=== PATIENT | female | born 1940 | race Two or more races ===

== ENCOUNTER 2016-05-06 18:55 | Inpatient (IN) | payer OTHER, MEDICAID ==
[~2016-05-06] VITALS: Ht 154.9 cm; Wt 77.2 kg
[2016-05-06 19:27] LABS: Basophils # (auto) 0 uL; Basophils % (auto) 0.2 % (0.0-2.0); DEFINITIVE VIEW TRANSMISSION; Eosinophils # (auto) 0.1 uL; Hematocrit 31.5 % (36.0-46.0); Hemoglobin 9.5 g/dL (12.2-16.2); Lymphocytes # (auto) 2.9 uL; Lymphocytes % (auto) 22.1 % (10.0-50.0); Mean Corpuscular Hgb Conc. 30.2 g/dL (32.0-36.0); Mean Corpuscular Volume 59.8 fL (80.0-100.0); Mean Platelet Volume 9.3 fL (7.4-10.4); Monocytes # (auto) 0.1 uL; Monocytes % (auto) 1.1 % (0.0-12.0); Neutrophils # (auto) 9.8 uL; Neutrophils % (auto) 75.6 % (37.0-80.0); Platelet Count (auto) 299 10^3/uL (140-450); White Blood Cell 12.9 10^3/uL (4.4-10.8)
[2016-05-06 19:37] LABS: Red Cell Distribution Width 20.3 % (11.6-16.0)
[2016-05-06 19:50] LABS: Alkaline Phosphatase 216 U/L (45-117); Anion Gap 16 (5-15); Aspartate Aminotransferase 51 U/L (15-37); BUN/Creatinine Ratio 15.1; Bilirubin, Total 0.6 mg/dL (0.2-1.0); Blood Urea Nitrogen 13 mg/dL (7-18); Calcium 9.3 mg/dL (8.5-10.1); Carbon Dioxide 23 mmol/L (21-32); Chloride 101 mmol/L (98-107); GFR African American 83 mL/min; GFR Non-African American 68 mL/min; Glucose 125 mg/dL (74-106); Sodium 140 mmol/L (136-145); Total Protein 8.1 g/dL (6.4-8.2)
[2016-05-06 20:00] LABS: Platelet Estimate Adequate
[2016-05-06 20:01] LABS: Anisocytosis Moderate; Hypochromia Marked; Microcytosis Marked; Ovalocytes MODERATE
[2016-05-06] MEDS ORDERED: SODIUM CHLORIDE 0.9% 500 ML IVB ONE (20:05)
[2016-05-06] MEDS ORDERED: AZITHROMYCIN 500MG/D5W 250ML 250 ML IV ONE (20:15)
[2016-05-06] MEDS ORDERED: cefTRIAXone 1GM/50ML D5W 50 ML IV ONE (20:15)
[2016-05-06 20:24] LABS: B-Type Natriuretic Peptide 30.47 pg/mL (0-100)
[2016-05-06 20:28] LABS: Prothrombin Time 13.1 sec (9.37-12.3)
[2016-05-06 20:29] LABS: INR 1.27 (0.9-1.15); Partial Thromboplastin Time 34.1 sec (22.64-33.71); Temperature: 22.4 C (20.0-25.0)
[2016-05-06] MEDS: MAGNESIUM SULFATE 1GM/100ML 100 ML IV SCH (20:45)
[2016-05-06 21:20] LABS: Lactic Acid 2.5 mmol/L (0.4-2.0)
[2016-05-06 21:23] LABS: REFLEX LACTIC ACID YES OR NO YES
[2016-05-06 21:43] LABS: Urine RBC None Seen /hpf (0 - 4)
[2016-05-06 21:59] LABS: Urine Bilirubin Negative (Negative); Urine Blood Negative /uL (Negative); Urine Color Yellow (Yellow); Urine Glucose Normal (Normal); Urine Ketone Negative (Negative); Urine Nitrite Negative (Negative); Urine Squamous Epithelial Cell FEW /hpf (<5); Urine Urobilinogen Normal (Negative); Urine pH 5.5 (5.0-8.0)
[2016-05-06 22:16] LABS: Lactic Acid 2.2 mmol/L (0.4-2.0)
[2016-05-06 22:20] LABS: REFLEX LACTIC ACID YES OR NO NO
[2016-05-06] MEDS ORDERED: cefTRIAXone SOD 1,000 MG VL ONE (23:06)
[2016-05-06] MEDS ORDERED: LACTULOSE 20Gm/30ML SOLN PO PRN ×2 (23:15→23:30)
[2016-05-06] MEDS ORDERED: NITROGLYCERIN 0.4 MG SL TAB SL PRN (23:15)
[2016-05-06] MEDS ORDERED: MORPHINE SULF INJ 2 MG/ML SYRINGE 1ML IV PRN (23:15)
[2016-05-06] MEDS ORDERED: MORPHINE SULFATE 4 MG/ML SYRG IV PRN (23:30)
[2016-05-06] MEDS ORDERED: ONDANSETRON HCL 4 MG/2 ML VIAL IV PRN (23:30)
[2016-05-06] MEDS ORDERED: DEXTROSE (50%) 50ML SYRG IV PRN (23:45)
[2016-05-07 01:00] VITALS: BP 141/79
[2016-05-07] MEDS ORDERED: MAGNESIUM SULFATE 1GM/100ML 100 ML IV ONE (02:16)
[2016-05-07] MEDS: MAGNESIUM SULFATE 1GM/100ML 100 ML IV SCH (02:22)
[2016-05-07] MEDS: IPRATROPIUM BROM 0.5 MG/2.5ML INH SOL NEB SCH ×6 (02:29→22:23)
[2016-05-07] MEDS: ALBUTEROL SULF 2.5 MG/0.5ML(0.5%) NEB SOLN NEB SCH ×6 (02:29→22:24)
[2016-05-07 04:37] VITALS: BP 133/54
[2016-05-07] MEDS: ACCU-CHEK COMFORT CURVE STRIP VI SCH ×4 (06:14→17:33)
[2016-05-07 06:15] LABS: Basophils # (auto) 0 uL; Basophils % (auto) 0.5 % (0.0-2.0); DEFINITIVE VIEW TRANSMISSION; Eosinophils # (auto) 0.1 uL; Eosinophils % (auto) 0.6 % (0.0-7.0); Hematocrit 29.5 % (36.0-46.0); Hemoglobin 8.9 g/dL (12.2-16.2); Lymphocytes # (auto) 1.8 uL; Lymphocytes % (auto) 17.9 % (10.0-50.0); Mean Corpuscular Hemoglobin 18.1 pg (28.0-32.0); Mean Corpuscular Hgb Conc. 30.1 g/dL (32.0-36.0); Mean Corpuscular Volume 60.3 fL (80.0-100.0); Mean Platelet Volume 9.4 fL (7.4-10.4); Monocytes # (auto) 0.7 uL; Monocytes % (auto) 7.5 % (0.0-12.0); Neutrophils # (auto) 7.2 uL; Neutrophils % (auto) 73.5 % (37.0-80.0); Platelet Count (auto) 273 10^3/uL (140-450); Red Cell Distribution Width 19.7 % (11.6-16.0); SUSPECT VIEW TRANSMISSION; White Blood Cell 9.9 10^3/uL (4.4-10.8)
[2016-05-07] MEDS: InsuLIN REG 1unit/0.01ml Soln (100units/ml) SC SCH ×4 (06:15→17:59)
[2016-05-07] MEDS: metroNIDAZOLE 500 MG TAB PO SCH ×3 (06:16→22:01)
[2016-05-07 06:39] LABS: Albumin 2.9 g/dL (3.4-5.0); Bilirubin, Total 0.6 mg/dL (0.2-1.0); Calcium 9.1 mg/dL (8.5-10.1); Total Protein 7.6 g/dL (6.4-8.2)
[2016-05-07 08:00] VITALS: BP 145/64
[2016-05-07] MEDS: LEVOTHYROXINE SODIUM 25 MCG TAB PO SCH (09:14)
[2016-05-07] MEDS: BENAZEPRIL HCL 10 MG TAB PO SCH (09:14)
[2016-05-07] MEDS: LEVOTHYROXINE SODIUM 112 MCG TAB PO SCH (09:16)
[2016-05-07] MEDS: methylPREDNISolone SOD SUCC 40 MG/ML VL IV SCH ×2 (09:17→22:01)
[2016-05-07] MEDS: PANTOPRAZOLE SODIUM 40 MG/10 ML VIAL IV SCH (09:17)
[2016-05-07] MEDS ORDERED: RIVAROXABAN 10 MG TAB PO SCH (10:00)
[2016-05-07] MEDS ORDERED: PATIENTS OWN MEDICATION (xarelto 20 MG) PO SCH (10:00)
[2016-05-07 11:52] VITALS: BP 143/71
[2016-05-07 16:00] VITALS: BP 145/99
[2016-05-07] MEDS ORDERED: LEVO150T68 PO (17:57)
[2016-05-07] MEDS ORDERED: GLIP-115 PO (17:57)
[2016-05-07] MEDS: RIVAROXABAN 20 MG TAB PO SCH (17:57)
[2016-05-07 20:00] VITALS: BP 134/57
[2016-05-07] MEDS: cefTRIAXone 1GM/50ML D5W 50 ML IV SCH (22:00)
[2016-05-07] MEDS: AZITHROMYCIN 500MG/D5W 250ML 250 ML IV SCH (22:00)
[2016-05-07] MEDS: ATORVASTATIN 20 MG TAB PO SCH (22:01)
[2016-05-08] VITALS (7 sets, daily range): BP systolic 118–150; BP diastolic 57–76
[2016-05-08] MEDS: ACCU-CHEK COMFORT CURVE STRIP VI SCH ×5 (00:15→23:04)
[2016-05-08] MEDS: InsuLIN REG 1unit/0.01ml Soln (100units/ml) SC SCH ×5 (00:19→23:04)
[2016-05-08] MEDS: IPRATROPIUM BROM 0.5 MG/2.5ML INH SOL NEB SCH ×6 (02:00→21:57)
[2016-05-08] MEDS: metroNIDAZOLE 500 MG TAB PO SCH ×3 (05:38→21:11)
[2016-05-08 06:08] LABS: DEFINITIVE VIEW TRANSMISSION; Hematocrit 32.6 % (36.0-46.0); Hemoglobin 9.9 g/dL (12.2-16.2); Mean Corpuscular Hemoglobin 18.4 pg (28.0-32.0); Mean Corpuscular Hgb Conc. 30.4 g/dL (32.0-36.0); Mean Corpuscular Volume 60.6 fL (80.0-100.0); Mean Platelet Volume 9.6 fL (7.4-10.4); Platelet Count (auto) 294 10^3/uL (140-450); White Blood Cell 13.2 10^3/uL (4.4-10.8)
[2016-05-08] MEDS: ALBUTEROL SULF 2.5 MG/0.5ML(0.5%) NEB SOLN NEB SCH ×5 (06:13→21:57)
[2016-05-08 06:18] LABS: Calcium 9.1 mg/dL (8.5-10.1); Potassium 4.6 mmol/L (3.5-5.1)
[2016-05-08 06:21] LABS: Red Cell Distribution Width 20.3 % (11.6-16.0)
[2016-05-08 06:22] LABS: BUN/Creatinine Ratio 13.4; Magnesium 2.3 mg/dL (1.6-2.6); Metamyelocytes % 0; Myelocytes % 0; Promyelocytes % 0; Reactive Lymphocytes 0
[2016-05-08 06:26] LABS: INR 1.36 (0.9-1.15)
[2016-05-08 06:50] LABS: Anisocytosis Slight; Hypersegmented Neutrophils Present; Platelet Estimate Adequate
[2016-05-08 06:51] LABS: Hypochromia Moderate; Ovalocytes MODERATE
[2016-05-08] MEDS: BENAZEPRIL HCL 10 MG TAB PO SCH (10:00)
[2016-05-08] MEDS: LEVOTHYROXINE SODIUM 112 MCG TAB PO SCH (10:28)
[2016-05-08] MEDS: LEVOTHYROXINE SODIUM 25 MCG TAB PO SCH (10:28)
[2016-05-08] MEDS: PANTOPRAZOLE SODIUM 40 MG/10 ML VIAL IV SCH (10:28)
[2016-05-08] MEDS: methylPREDNISolone SOD SUCC 40 MG/ML VL IV SCH ×2 (10:28→21:10)
[2016-05-08] MEDS ORDERED: INSULIN DETEMIR(LEVEMIR) 1unit/0.01ml Soln (100units/ml) SC ONE (12:45)
[2016-05-08] MEDS: RIVAROXABAN 20 MG TAB PO SCH (18:31)
[2016-05-08] MEDS: cefTRIAXone 1GM/50ML D5W 50 ML IV SCH (21:10)
[2016-05-08] MEDS: ATORVASTATIN 20 MG TAB PO SCH (21:11)
[2016-05-08] MEDS: AZITHROMYCIN 500MG/D5W 250ML 250 ML IV SCH (22:16)
[2016-05-09] MEDS: ALBUTEROL SULF 2.5 MG/0.5ML(0.5%) NEB SOLN NEB SCH ×6 (01:55→22:40)
[2016-05-09] MEDS: IPRATROPIUM BROM 0.5 MG/2.5ML INH SOL NEB SCH ×6 (01:55→22:40)
[2016-05-09 05:00] VITALS: BP 132/74
[2016-05-09] MEDS: metroNIDAZOLE 500 MG TAB PO SCH ×2 (05:41→12:26)
[2016-05-09] MEDS: InsuLIN REG 1unit/0.01ml Soln (100units/ml) SC SCH ×3 (05:53→17:36)
[2016-05-09] MEDS: ACCU-CHEK COMFORT CURVE STRIP VI SCH ×3 (05:53→17:35)
[2016-05-09 06:07] LABS: DEFINITIVE VIEW TRANSMISSION; Hematocrit 29.9 % (36.0-46.0); Mean Corpuscular Hemoglobin 18.2 pg (28.0-32.0); Mean Corpuscular Hgb Conc. 30.2 g/dL (32.0-36.0); Mean Corpuscular Volume 60.3 fL (80.0-100.0); Mean Platelet Volume 9.9 fL (7.4-10.4); Platelet Count (auto) 266 10^3/uL (140-450); White Blood Cell 17.2 10^3/uL (4.4-10.8)
[2016-05-09 06:16] LABS: Red Cell Distribution Width 20.4 % (11.6-16.0)
[2016-05-09 06:17] LABS: Metamyelocytes % 0; Myelocytes % 0; Promyelocytes % 0; Reactive Lymphocytes 0
[2016-05-09] MEDS: LEVOTHYROXINE SODIUM 25 MCG TAB PO SCH (06:28)
[2016-05-09] MEDS: LEVOTHYROXINE SODIUM 112 MCG TAB PO SCH (06:28)
[2016-05-09 06:40] LABS: BUN/Creatinine Ratio 23.4; Magnesium 2.3 mg/dL (1.6-2.6); Phosphorus 3.5 mg/dL (2.5-4.90); Potassium 4.8 mmol/L (3.5-5.1)
[2016-05-09 06:57] LABS: Hypersegmented Neutrophils Present; Platelet Estimate Adequate
[2016-05-09 06:58] LABS: Anisocytosis Slight; Hypochromia Marked; Ovalocytes MODERATE
[2016-05-09 08:58] VITALS: BP 137/75
[2016-05-09] MEDS: PANTOPRAZOLE SODIUM 40 MG/10 ML VIAL IV SCH (10:17)
[2016-05-09] MEDS: methylPREDNISolone SOD SUCC 40 MG/ML VL IV SCH (10:17)
[2016-05-09] MEDS: BENAZEPRIL HCL 10 MG TAB PO SCH (10:17)
[2016-05-09 12:51] VITALS: BP 134/84
[2016-05-09 16:43] VITALS: BP 133/64
[2016-05-09] MEDS ORDERED: DEXTROSE (50%) 50ML SYRG IV PRN (16:45)
[2016-05-09] MEDS ORDERED: VANCOMYCIN PER PHARMACY 0 MG IV SCH (17:15)
[2016-05-09] MEDS: RIVAROXABAN 20 MG TAB PO SCH (17:36)
[2016-05-09] MEDS: VANCOMYCIN 1GM/250ML D5W 250 ML IV SCH (18:09)
[2016-05-09 20:00] VITALS: BP 121/62
[2016-05-09] MEDS: MEROPENEM 1GM IVPB 100 ML IV SCH (20:05)
[2016-05-09 21:34] VITALS: BP 121/62
[2016-05-09] MEDS: ATORVASTATIN 20 MG TAB PO SCH (21:43)
[2016-05-09] MEDS ORDERED: INSULIN DETEMIR(LEVEMIR) 1unit/0.01ml Soln (100units/ml) SC SCH (22:00)
[2016-05-10] MEDS: InsuLIN REG 1unit/0.01ml Soln (100units/ml) SC SCH ×3 (00:19→12:03)
[2016-05-10] MEDS: ACCU-CHEK COMFORT CURVE STRIP VI SCH ×3 (00:20→12:03)
[2016-05-10] MEDS: ALBUTEROL SULF 2.5 MG/0.5ML(0.5%) NEB SOLN NEB SCH ×4 (02:00→14:07)
[2016-05-10] MEDS: IPRATROPIUM BROM 0.5 MG/2.5ML INH SOL NEB SCH ×4 (02:00→14:07)
[2016-05-10] MEDS: MEROPENEM 1GM IVPB 100 ML IV SCH ×2 (03:08→10:48)
[2016-05-10 05:27] LABS: DEFINITIVE VIEW TRANSMISSION; Hematocrit 32.1 % (36.0-46.0); Hemoglobin 9.5 g/dL (12.2-16.2); Mean Corpuscular Hemoglobin 18.3 pg (28.0-32.0); Mean Corpuscular Hgb Conc. 29.7 g/dL (32.0-36.0); Mean Corpuscular Volume 61.3 fL (80.0-100.0); Mean Platelet Volume 9.6 fL (7.4-10.4); Platelet Count (auto) 275 10^3/uL (140-450); White Blood Cell 19.1 10^3/uL (4.4-10.8)
[2016-05-10 05:36] VITALS: BP 142/76
[2016-05-10 05:45] LABS: Metamyelocytes % 0; Myelocytes % 0; Promyelocytes % 0; Reactive Lymphocytes 0
[2016-05-10 05:48] LABS: Potassium 4.2 mmol/L (3.5-5.1)
[2016-05-10 05:54] LABS: BUN/Creatinine Ratio 25.7; Calcium 8.4 mg/dL (8.5-10.1)
[2016-05-10] MEDS: VANCOMYCIN 1GM/250ML D5W 250 ML IV SCH (06:08)
[2016-05-10 06:15] LABS: Anisocytosis Moderate; Hypochromia Marked; Microcytosis Marked; Ovalocytes MODERATE; Platelet Estimate Adequate
[2016-05-10 06:16] LABS: Hypersegmented Neutrophils Present
[2016-05-10] MEDS: LEVOTHYROXINE SODIUM 25 MCG TAB PO SCH (06:31)
[2016-05-10] MEDS: LEVOTHYROXINE SODIUM 112 MCG TAB PO SCH (06:31)
[2016-05-10 09:00] VITALS: BP 118/99
[2016-05-10 09:22] VITALS: BP 142/76
[2016-05-10] MEDS: PANTOPRAZOLE SODIUM 40 MG/10 ML VIAL IV SCH (10:43)
[2016-05-10] MEDS: BENAZEPRIL HCL 10 MG TAB PO SCH (10:49)
[2016-05-10 12:38] VITALS: BP 121/84
[2016-05-10] MEDS ORDERED: BEN10T PO (13:48)
[2016-05-10] MEDS ORDERED: ALB5IS NEB (13:48)
[2016-05-10] MEDS ORDERED: ATOR20TA50 PO (13:48)
[2016-05-10] MEDS ORDERED: IPR002IS NEB (13:48)
[2016-05-10] MEDS ORDERED: RIV20T PO (13:48)
[2016-05-10] MEDS ORDERED: LEVEMIR SC (13:48)
[2016-05-10 14:26] VITALS: BP 121/84
== END 2016-05-10 15:50 | disposition home or self-care (01) | DRG 871 ==
LOC: ER 18:59 → DOU IN ICU 19:00 → TELE-WESTW 05-08 05:55
PROVIDERS: ADMIT Family Medicine; ATTEND Nurse Practitioner Acute Care
DX: A41.9 Sepsis, unspecified organism (principal); J18.9 Pneumonia, unspecified organism; J96.01 Acute respiratory failure with hypoxia; J44.0 Chronic obstructive pulmonary disease with (acute) lower respiratory infection; J44.1 Chronic obstructive pulmonary disease with (acute) exacerbation; C78.00 Secondary malignant neoplasm of unspecified lung; C78.7 Secondary malignant neoplasm of liver and intrahepatic bile duct; E83.42 Hypomagnesemia; I10 Essential (primary) hypertension; F32.9 Major depressive disorder, single episode, unspecified; F41.9 Anxiety disorder, unspecified; Y95 Nosocomial condition; D50.9 Iron deficiency anemia, unspecified; Z92.21 Personal history of antineoplastic chemotherapy; Z85.3 Personal history of malignant neoplasm of breast; Z90.13 Acquired absence of bilateral breasts and nipples; Z86.718 Personal history of other venous thrombosis and embolism; Z82.49 Family history of ischemic heart disease and other diseases of the circulatory system; Z83.3 Family history of diabetes mellitus
CPT/HCPCS: 36415; 36600; 71010; 71020; 71250; 80048; 80053; 80061; 81001; 82805; 82962; 83036; 83605; 83735; 83880; 84100; 84443; 84484; 85007; 85025; 85027; 85610; 85730; 87040; 87081; 93005; 94640; 96361; 96365; 96368; C9113; J0696; J1815; J2185

== ENCOUNTER 2016-06-26 18:36 | Inpatient (IN) | payer OTHER, MEDICAID ==
[~2016-06-26] VITALS: Ht 152.4 cm; Wt 82.0 kg
[~2016-06-26 18:36] MED LIST: ALB5IS NEB; ATOR20TA50 PO; BEN10T PO; GLIP-115 PO; IPR002IS NEB; LEVEMIR SC; LEVO150T68 PO; RIV20T PO
[2016-06-26] MEDS ORDERED: methylPREDNISolone SOD SUCC 125 MG/2 ML VL IV ONE (22:30)
[2016-06-26] MEDS ORDERED: ONDANSETRON HCL 4 MG/2 ML VIAL IV ONE (22:30)
[2016-06-26] MEDS ORDERED: SODIUM CHLORIDE 0.9% 1,000 ML IV ONE (22:30)
[2016-06-26 23:06] LABS: Basophils # (auto) 0 uL; Basophils % (auto) 0.1 % (0.0-2.0); DEFINITIVE VIEW TRANSMISSION; Eosinophils # (auto) 0.2 uL; Eosinophils % (auto) 1.1 % (0.0-7.0); Hematocrit 30.9 % (36.0-46.0); Hemoglobin 9.2 g/dL (12.2-16.2); Lymphocytes # (auto) 1.5 uL; Lymphocytes % (auto) 8.9 % (10.0-50.0); Mean Corpuscular Hgb Conc. 29.7 g/dL (32.0-36.0); Mean Corpuscular Volume 60.5 fL (80.0-100.0); Mean Platelet Volume 8.8 fL (7.4-10.4); Monocytes # (auto) 0.6 uL; Monocytes % (auto) 3.4 % (0.0-12.0); Neutrophils # (auto) 14.2 uL; Neutrophils % (auto) 86.5 % (37.0-80.0); Platelet Count (auto) 345 10^3/uL (140-450); White Blood Cell 16.4 10^3/uL (4.4-10.8)
[2016-06-26 23:17] LABS: INR 0.99 (0.9-1.15); Partial Thromboplastin Time 26.9 sec (22.64-33.71); Prothrombin Time 10.7 sec (9.37-12.3)
[2016-06-26 23:21] LABS: Albumin 2.3 g/dL (3.4-5.0); Alkaline Phosphatase 514 U/L (45-117); Anion Gap 9 (5-15); Aspartate Aminotransferase 57 U/L (15-37); BUN/Creatinine Ratio 21.3; Bilirubin, Total 0.4 mg/dL (0.2-1.0); Blood Urea Nitrogen 13 mg/dL (7-18); Calcium 9.3 mg/dL (8.5-10.1); Carbon Dioxide 36 mmol/L (21-32); Chloride 98 mmol/L (98-107); GFR African American 123 mL/min; GFR Non-African American 102 mL/min; Glucose 133 mg/dL (74-106); Potassium 4.7 mmol/L (3.5-5.1); Sodium 143 mmol/L (136-145); Total Protein 7.3 g/dL (6.4-8.2)
[2016-06-27] VITALS (16 sets, daily range): BP systolic 119–162; BP diastolic 48–93
[2016-06-27 00:03] LABS: B-Type Natriuretic Peptide 126.75 pg/mL (0-100); Temperature: 23.8 C (20.0-25.0)
[2016-06-27] MEDS ORDERED: FUROSEMIDE 20 MG/2 ML VIAL IV ONE (01:15)
[2016-06-27] MEDS ORDERED: PIPERACILLIN-TAZOB 3.375GM 100 ML IV ONE (01:15)
[2016-06-27] MEDS ORDERED: AZITHROMYCIN 500MG/D5W 250ML 250 ML IV ONE (01:15)
[2016-06-27] MEDS ORDERED: ONDANSETRON HCL 4 MG/2 ML VIAL IV PRN (01:45)
[2016-06-27] MEDS ORDERED: DEXTROSE (50%) 50ML SYRG IV PRN (01:45)
[2016-06-27] MEDS ORDERED: MORPHINE SULF INJ 2 MG/ML SYRINGE 1ML IV PRN (01:45)
[2016-06-27] MEDS ORDERED: HYDROcodone-ACET 5/325MG TAB PO PRN (01:45)
[2016-06-27] MEDS ORDERED: TEMAZEPAM 15 MG CAP PO PRN (01:45)
[2016-06-27] MEDS ORDERED: NITROGLYCERIN 0.4 MG SL TAB SL PRN (01:45)
[2016-06-27] MEDS ORDERED: IOHEXOL 350 MG/ML 100ML IJ ONE (02:01)
[2016-06-27] MEDS: ENOXAPARIN SOD 80 MG/0.8ML SYRINGE SC SCH ×2 (03:10→15:01)
[2016-06-27] MEDS: ACCU-CHEK COMFORT CURVE STRIP VI SCH ×4 (06:00→23:36)
[2016-06-27] MEDS: InsuLIN REG 1unit/0.01ml Soln (100units/ml) SC SCH ×4 (06:00→23:36)
[2016-06-27] MEDS: glipiZIDE 5 MG TAB PO SCH ×3 (07:11→18:00)
[2016-06-27] MEDS: LEVOTHYROXINE SODIUM 50 MCG TAB PO SCH (07:11)
[2016-06-27] MEDS ORDERED: LETR2.5T PO (09:43)
[2016-06-27] MEDS ORDERED: SENN8.6C PO (09:43)
[2016-06-27] MEDS ORDERED: SPIR25TA89 PO (09:43)
[2016-06-27] MEDS ORDERED: HYDR-531 PO (09:43)
[2016-06-27] MEDS ORDERED: METF-316 PO (09:43)
[2016-06-27] MEDS ORDERED: OME20T PO (09:43)
[2016-06-27] MEDS: methylPREDNISolone SOD SUCC 125 MG/2 ML VL IV SCH ×2 (10:45→21:33)
[2016-06-27] MEDS: LEVOFLOXACIN 500MG 100 ML IV SCH (10:45)
[2016-06-27] MEDS: PANTOPRAZOLE SODIUM 40 MG/10 ML VIAL IV SCH (10:45)
[2016-06-27] MEDS: IPRATROPIUM BROM 0.5 MG/2.5ML INH SOL NEB PRN (11:05)
[2016-06-27] MEDS: ALBUTEROL SULF 2.5 MG/0.5ML(0.5%) NEB SOLN NEB PRN (11:05)
[2016-06-27] MEDS: ATORVASTATIN 20 MG TAB PO SCH (21:33)
[2016-06-28] VITALS (13 sets, daily range): BP systolic 112–148; BP diastolic 40–79
[2016-06-28] MEDS: ENOXAPARIN SOD 80 MG/0.8ML SYRINGE SC SCH ×2 (02:46→15:00)
[2016-06-28 03:46] LABS: DEFINITIVE VIEW TRANSMISSION; Hematocrit 31.5 % (36.0-46.0); Hemoglobin 9.2 g/dL (12.2-16.2); Mean Corpuscular Hemoglobin 17.9 pg (28.0-32.0); Mean Corpuscular Hgb Conc. 29.2 g/dL (32.0-36.0); Mean Corpuscular Volume 61.3 fL (80.0-100.0); Mean Platelet Volume 8.9 fL (7.4-10.4); Platelet Count (auto) 342 10^3/uL (140-450); White Blood Cell 16.7 10^3/uL (4.4-10.8)
[2016-06-28] MEDS: IPRATROPIUM BROM 0.5 MG/2.5ML INH SOL NEB PRN ×2 (03:47→19:39)
[2016-06-28] MEDS: ALBUTEROL SULF 2.5 MG/0.5ML(0.5%) NEB SOLN NEB PRN ×2 (03:47→19:39)
[2016-06-28 04:03] LABS: Albumin 2.3 g/dL (3.4-5.0); BUN/Creatinine Ratio 23.1; Bilirubin, Total 0.3 mg/dL (0.2-1.0); Calcium 8.9 mg/dL (8.5-10.1); Potassium 4.7 mmol/L (3.5-5.1); Total Protein 7.3 g/dL (6.4-8.2)
[2016-06-28 04:10] LABS: Metamyelocytes % 0; Promyelocytes % 0; Reactive Lymphocytes 0
[2016-06-28 04:29] LABS: Myelocytes % 1; Platelet Estimate Adequate
[2016-06-28 04:30] LABS: Hypochromia Marked
[2016-06-28 04:31] LABS: Anisocytosis Moderate; Basophilic Stippling FEW; Microcytosis Marked
[2016-06-28] MEDS: InsuLIN REG 1unit/0.01ml Soln (100units/ml) SC SCH ×3 (06:05→18:00)
[2016-06-28] MEDS: ACCU-CHEK COMFORT CURVE STRIP VI SCH ×3 (06:05→18:18)
[2016-06-28] MEDS: glipiZIDE 5 MG TAB PO SCH ×2 (06:38→18:00)
[2016-06-28] MEDS: LEVOTHYROXINE SODIUM 50 MCG TAB PO SCH (06:38)
[2016-06-28] MEDS: MORPHINE SULF INJ 2 MG/ML SYRINGE 1ML IV PRN (12:32)
[2016-06-28] MEDS: methylPREDNISolone SOD SUCC 125 MG/2 ML VL IV SCH ×2 (12:33→22:28)
[2016-06-28] MEDS: LEVOFLOXACIN 500MG 100 ML IV SCH (12:33)
[2016-06-28] MEDS: PANTOPRAZOLE SODIUM 40 MG/10 ML VIAL IV SCH (12:33)
[2016-06-28] MEDS ORDERED: ONDANSETRON ODT 4 MG TAB PO ONE (18:45)
[2016-06-28] MEDS: ATORVASTATIN 20 MG TAB PO SCH (22:28)
[2016-06-29] MEDS: InsuLIN REG 1unit/0.01ml Soln (100units/ml) SC SCH ×4 (00:07→16:31)
[2016-06-29] MEDS: ACCU-CHEK COMFORT CURVE STRIP VI SCH ×4 (00:07→16:31)
[2016-06-29] MEDS: IPRATROPIUM BROM 0.5 MG/2.5ML INH SOL NEB PRN ×3 (00:58→23:02)
[2016-06-29] MEDS: ALBUTEROL SULF 2.5 MG/0.5ML(0.5%) NEB SOLN NEB PRN ×3 (00:58→23:02)
[2016-06-29] MEDS: ENOXAPARIN SOD 80 MG/0.8ML SYRINGE SC SCH ×2 (02:44→16:21)
[2016-06-29 05:00] VITALS: BP 147/79
[2016-06-29 06:05] LABS: DEFINITIVE VIEW TRANSMISSION; Hematocrit 33.3 % (36.0-46.0); Hemoglobin 9.8 g/dL (12.2-16.2); Mean Corpuscular Hgb Conc. 29.6 g/dL (32.0-36.0); Mean Corpuscular Volume 60.8 fL (80.0-100.0); Mean Platelet Volume 9.6 fL (7.4-10.4); Platelet Count (auto) 313 10^3/uL (140-450); Red Cell Distribution Width 19.3 % (11.6-16.0); White Blood Cell 16.5 10^3/uL (4.4-10.8)
[2016-06-29 06:16] LABS: BUN/Creatinine Ratio 26.4; Calcium 8.9 mg/dL (8.5-10.1); Potassium 4.3 mmol/L (3.5-5.1)
[2016-06-29] MEDS: LEVOTHYROXINE SODIUM 50 MCG TAB PO SCH (06:16)
[2016-06-29] MEDS: glipiZIDE 5 MG TAB PO SCH ×2 (06:17→17:05)
[2016-06-29 06:29] LABS: Metamyelocytes % 0; Myelocytes % 0; Promyelocytes % 0; Reactive Lymphocytes 0
[2016-06-29 07:18] LABS: Anisocytosis Moderate; Platelet Estimate Adequate
[2016-06-29 07:19] LABS: Hypochromia Marked; Microcytosis Moderate
[2016-06-29 09:00] VITALS: BP 134/68
[2016-06-29] MEDS: PANTOPRAZOLE SODIUM 40 MG/10 ML VIAL IV SCH (10:29)
[2016-06-29] MEDS: methylPREDNISolone SOD SUCC 125 MG/2 ML VL IV SCH ×2 (10:30→21:40)
[2016-06-29] MEDS: LEVOFLOXACIN 500MG 100 ML IV SCH (10:30)
[2016-06-29 13:00] VITALS: BP 137/71
[2016-06-29] MEDS: MORPHINE SULF INJ 2 MG/ML SYRINGE 1ML IV PRN ×2 (13:53→17:58)
[2016-06-29] MEDS ORDERED: LACTULOSE 20Gm/30ML SOLN PO PRN (15:30)
[2016-06-29] MEDS ORDERED: DOCUSATE SOD 100 MG CAP PO PRN (15:30)
[2016-06-29 17:00] VITALS: BP 161/75
[2016-06-29 21:23] VITALS: BP 161/75
[2016-06-29] MEDS: ATORVASTATIN 20 MG TAB PO SCH (21:40)
[2016-06-29 22:13] VITALS: BP 147/67
[2016-06-30] MEDS: ACCU-CHEK COMFORT CURVE STRIP VI SCH ×5 (00:09→23:20)
[2016-06-30] MEDS: ENOXAPARIN SOD 80 MG/0.8ML SYRINGE SC SCH ×2 (02:58→14:44)
[2016-06-30] MEDS: IPRATROPIUM BROM 0.5 MG/2.5ML INH SOL NEB PRN ×2 (03:11→19:12)
[2016-06-30] MEDS: ALBUTEROL SULF 2.5 MG/0.5ML(0.5%) NEB SOLN NEB PRN ×2 (03:11→19:13)
[2016-06-30 05:09] VITALS: BP 136/71
[2016-06-30] MEDS: InsuLIN REG 1unit/0.01ml Soln (100units/ml) SC SCH ×5 (06:01→23:20)
[2016-06-30] MEDS: LEVOTHYROXINE SODIUM 50 MCG TAB PO SCH (06:15)
[2016-06-30] MEDS: glipiZIDE 5 MG TAB PO SCH ×2 (06:15→18:02)
[2016-06-30] MEDS: MORPHINE SULF INJ 2 MG/ML SYRINGE 1ML IV PRN (08:40)
[2016-06-30 09:00] VITALS: BP 134/88
[2016-06-30] MEDS: PANTOPRAZOLE SODIUM 40 MG/10 ML VIAL IV SCH (09:01)
[2016-06-30] MEDS: methylPREDNISolone SOD SUCC 125 MG/2 ML VL IV SCH ×2 (09:01→21:27)
[2016-06-30] MEDS: LEVOFLOXACIN 500MG 100 ML IV SCH (09:01)
[2016-06-30 13:00] VITALS: BP 143/75
[2016-06-30] MEDS: ACETAMINOPHEN 325 MG TAB PO PRN (14:47)
[2016-06-30] MEDS: Boost Glucose Control 8 Ounces PO SCH (18:02)
[2016-06-30 18:06] VITALS: BP 138/62
[2016-06-30] MEDS: ATORVASTATIN 20 MG TAB PO SCH (21:27)
[2016-06-30 21:40] VITALS: BP 140/79
[2016-06-30 23:58] VITALS: BP 149/76
[2016-07-01] MEDS: ACETAMINOPHEN 325 MG TAB PO PRN ×2 (00:08→23:49)
[2016-07-01] MEDS: ENOXAPARIN SOD 80 MG/0.8ML SYRINGE SC SCH ×2 (03:14→14:51)
[2016-07-01] MEDS: IPRATROPIUM BROM 0.5 MG/2.5ML INH SOL NEB PRN ×4 (03:25→19:49)
[2016-07-01] MEDS: ALBUTEROL SULF 2.5 MG/0.5ML(0.5%) NEB SOLN NEB PRN ×4 (03:25→19:49)
[2016-07-01 04:43] VITALS: BP 123/59
[2016-07-01] MEDS: InsuLIN REG 1unit/0.01ml Soln (100units/ml) SC SCH ×4 (05:53→23:49)
[2016-07-01] MEDS: ACCU-CHEK COMFORT CURVE STRIP VI SCH ×3 (05:53→17:52)
[2016-07-01] MEDS: LEVOTHYROXINE SODIUM 50 MCG TAB PO SCH (06:18)
[2016-07-01] MEDS: glipiZIDE 5 MG TAB PO SCH ×2 (06:18→17:52)
[2016-07-01] MEDS: Boost Glucose Control 8 Ounces PO SCH ×2 (08:00→17:50)
[2016-07-01 09:04] VITALS: BP 140/71
[2016-07-01] MEDS: PANTOPRAZOLE SODIUM 40 MG/10 ML VIAL IV SCH (10:33)
[2016-07-01] MEDS: LEVOFLOXACIN 500MG 100 ML IV SCH (10:34)
[2016-07-01] MEDS: methylPREDNISolone SOD SUCC 125 MG/2 ML VL IV SCH ×2 (10:34→21:38)
[2016-07-01 13:00] VITALS: BP 140/80
[2016-07-01 17:11] VITALS: BP 135/85
[2016-07-01 20:27] VITALS: BP 135/85
[2016-07-01] MEDS: ATORVASTATIN 20 MG TAB PO SCH (21:39)
[2016-07-01 22:00] VITALS: BP 142/81
[2016-07-02] MEDS: ACCU-CHEK COMFORT CURVE STRIP VI SCH ×5 (00:13→23:34)
[2016-07-02] MEDS: ENOXAPARIN SOD 80 MG/0.8ML SYRINGE SC SCH ×2 (02:37→15:17)
[2016-07-02 05:42] VITALS: BP 147/84
[2016-07-02] MEDS: InsuLIN REG 1unit/0.01ml Soln (100units/ml) SC SCH ×4 (06:18→23:33)
[2016-07-02] MEDS: LEVOTHYROXINE SODIUM 50 MCG TAB PO SCH (06:19)
[2016-07-02] MEDS: glipiZIDE 5 MG TAB PO SCH ×2 (06:20→17:52)
[2016-07-02] MEDS: IPRATROPIUM BROM 0.5 MG/2.5ML INH SOL NEB PRN ×2 (07:45→18:43)
[2016-07-02] MEDS: ALBUTEROL SULF 2.5 MG/0.5ML(0.5%) NEB SOLN NEB PRN ×2 (07:45→18:43)
[2016-07-02 08:00] VITALS: BP 145/71
[2016-07-02] MEDS: Boost Glucose Control 8 Ounces PO SCH ×2 (08:00→17:55)
[2016-07-02 09:09] VITALS: BP 145/71
[2016-07-02] MEDS: PANTOPRAZOLE SODIUM 40 MG/10 ML VIAL IV SCH (10:44)
[2016-07-02] MEDS: LEVOFLOXACIN 500MG 100 ML IV SCH (10:44)
[2016-07-02] MEDS: methylPREDNISolone SOD SUCC 125 MG/2 ML VL IV SCH (10:44)
[2016-07-02] MEDS: ACETAMINOPHEN 325 MG TAB PO PRN (10:45)
[2016-07-02 13:15] VITALS: BP 139/65
[2016-07-02 17:00] VITALS: BP 161/76
[2016-07-02] MEDS: ATORVASTATIN 20 MG TAB PO SCH (21:40)
[2016-07-02] MEDS: methylPREDNISolone SOD SUCC 40 MG/ML VL IV SCH (21:40)
[2016-07-02 21:52] VITALS: BP 133/68
[2016-07-03] MEDS: IPRATROPIUM BROM 0.5 MG/2.5ML INH SOL NEB PRN ×3 (03:02→16:16)
[2016-07-03] MEDS: ALBUTEROL SULF 2.5 MG/0.5ML(0.5%) NEB SOLN NEB PRN ×3 (03:02→16:16)
[2016-07-03] MEDS: ENOXAPARIN SOD 80 MG/0.8ML SYRINGE SC SCH (04:25)
[2016-07-03 05:19] VITALS: BP 134/70
[2016-07-03] MEDS: InsuLIN REG 1unit/0.01ml Soln (100units/ml) SC SCH ×2 (05:37→12:00)
[2016-07-03] MEDS: ACCU-CHEK COMFORT CURVE STRIP VI SCH ×2 (05:38→12:00)
[2016-07-03] MEDS: glipiZIDE 5 MG TAB PO SCH (06:27)
[2016-07-03] MEDS: LEVOTHYROXINE SODIUM 50 MCG TAB PO SCH (06:27)
[2016-07-03] MEDS: Boost Glucose Control 8 Ounces PO SCH (08:00)
[2016-07-03 09:00] VITALS: BP 134/76
[2016-07-03] MEDS: methylPREDNISolone SOD SUCC 40 MG/ML VL IV SCH (11:49)
[2016-07-03] MEDS: PANTOPRAZOLE SODIUM 40 MG/10 ML VIAL IV SCH (11:49)
[2016-07-03 13:00] VITALS: BP 142/56
[2016-07-03 15:24] VITALS: BP 130/61
== END 2016-07-03 16:50 | disposition hospice, home (50) | DRG 189 ==
LOC: EDBD 18:36 → ER 18:39 → TELE 18:40 → ICU WEST 06-27 08:48 → TELE-WESTW 06-28 15:52
PROVIDERS: ADMIT Nurse Practitioner; ATTEND Internal Medicine
PROC: 5A09357 Assistance with Respiratory Ventilation, Less than 24 Consecutive Hours, Continuous Positive Airway Pressure (ICD-10-PCS; principal; 2016-06-26)
DX: J96.20 Acute and chronic respiratory failure, unspecified whether with hypoxia or hypercapnia (principal); E43 Unspecified severe protein-calorie malnutrition; C78.00 Secondary malignant neoplasm of unspecified lung; J44.1 Chronic obstructive pulmonary disease with (acute) exacerbation; C78.7 Secondary malignant neoplasm of liver and intrahepatic bile duct; D72.829 Elevated white blood cell count, unspecified; C50.919 Malignant neoplasm of unspecified site of unspecified female breast; D63.8 Anemia in other chronic diseases classified elsewhere; I50.9 Heart failure, unspecified; I11.0 Hypertensive heart disease with heart failure; E78.5 Hyperlipidemia, unspecified; F32.9 Major depressive disorder, single episode, unspecified; F41.9 Anxiety disorder, unspecified; T45.1X5A Adverse effect of antineoplastic and immunosuppressive drugs, initial encounter; Z66 Do not resuscitate; E09.9 Drug or chemical induced diabetes mellitus without complications; I89.0 Lymphedema, not elsewhere classified; K59.00 Constipation, unspecified; Z51.5 Encounter for palliative care; Z82.49 Family history of ischemic heart disease and other diseases of the circulatory system; Z83.3 Family history of diabetes mellitus; Z85.3 Personal history of malignant neoplasm of breast; Z91.040 Latex allergy status; Z79.899 Other long term (current) drug therapy; Z86.718 Personal history of other venous thrombosis and embolism; Z92.21 Personal history of antineoplastic chemotherapy; Z90.10 Acquired absence of unspecified breast and nipple; Z99.81 Dependence on supplemental oxygen; Z68.35 Body mass index [BMI] 35.0-35.9, adult
CPT/HCPCS: 36415; 36600; 71010; 71275; 80048; 80053; 82805; 82962; 83605; 83735; 83880; 84484; 85007; 85025; 85027; 85379; 85610; 85730; 87040; 87081; 93970; 93971; 94640; 94660; 96361; 96365; 96368; 96375; 99291; C9113; J1815; J1956; J2405; J2543; Q0162